=== PATIENT | female | born 1960 | race Caucasian/White ===

== ENCOUNTER 2019-01-25 00:52 | Inpatient (IN) | payer SELFPAY ==
[~2019-01-25] VITALS: Ht 152.4 cm; Wt 98.2 kg
[2019-01-25 00:53] VITALS: Ht 152.4 cm; Wt 98.2 kg
--- NOTE | 2019-01-25 01:10 | NUR ---
PT PRESENTS TO ED FOR EVAL OF SOB AND PALPITATIONS SINCE 2200 LAST NIGHT; STS SYMPTOMS BEGAN WHILE LAYING DOWN; PT STS UNABLE TO LAY SUPINE. PT ALSO C/O CHEST PRESSURE X1 WEEK. PT AAOX4, GCS 15, RESP EVEN, PT TACHYPNEIC AT 30 RPM, RALES AUSCULTATED BILATERALLY. ABDOMEN SOFT/NONTENDER/NONDISTENDED, DENIES N/V. MOVES ALL EXTREMITIES, TRANSFERS SELF FROM WHEELCHAIR TO ER GURNEY. PT'S SON AT BEDSIDE.
--- NOTE | 2019-01-25 01:21 | NUR ---
MEDICATED PT WITH 10MG DILTIZAEM. SVT NOTED ON CM.
--- NOTE | 2019-01-25 01:21 | NUR ---
MEDICATED 10MG CARDIZEM. AFIB WITH RVR NOTED ON CM.
--- NOTE | 2019-01-25 01:27 | NUR ---
XRAY AT BEDSIDE.
[2019-01-25] MEDS ORDERED: ATENOLOL100 MG PO (01:37)
[2019-01-25 01:42] LABS: CALCIUM 8.5 mg/dL (8.5-10.1); CARBON DIOXIDE 24.2 mmol/L (21-32); CHLORIDE SERUM 102 mmol/L (98-107); CREATININE SERUM 0.9 mg/dL (0.6-1.0); GFR1 > 60 mL/min; GLUCOSE SERUM 147 mg/dL (74-106); POTASSIUM SERUM 3.5 mmol/L (3.5-5.1); SODIUM SERUM 138 mmol/L (136-145)
--- NOTE | 2019-01-25 01:44 | NUR ---
MEDICATED WITH 10MG CARDIZEM. AFIB WITH RVR NOTED ON CM.
--- NOTE | 2019-01-25 01:44 | NUR ---
MEDICATED PT WITH 10MG DILTIAZEM. SVT NOTED ON CM. PLEASE SEE EMAR.
[2019-01-25 01:46] LABS: BASOPHIL % 1.2 % (0-2); PLATELET COUNT 248 x10^3mcL (130-400); RED CELL DISTRIBUTION WIDTH 14.4 % (11.5-14.5)
[2019-01-25 01:47] LABS: ALBUMIN 3.8 g/dL (3.4-5.0); ALKALINE PHOSPHATASE 100 U/L (46-116); ALT/SGPT 60 U/L (14-59); AST/SGOT 37 U/L (15-37); BILIRUBIN TOTAL 0.41 mg/dL (0.20-1.00); MAGNESIUM 2.3 mg/dL (1.8-2.4)
[2019-01-25 01:57] LABS: FREE T4 1.2 ng/dL (0.76-1.46); FREE THYROXINE INDEX 2.5 ug/dL (1.4-4.5); T4(THYROXINE) 7.7 ug/dL (4.7-13.3)
[2019-01-25 02:27] LABS: T3 TOTAL 1.22 ng/mL
--- NOTE | 2019-01-25 02:40 | NUR ---
MEDICATED PER ORDER; SEE EMAR. PT DENIES PAIN AT THIS TIME, STS IS COMFORTABLE AND IS NOW ABLE TO LAY ON THE BED WITH HOB AT 45 DEGREES.
--- NOTE | 2019-01-25 04:07 | NUR ---
ADMITTING DR AT BEDSIDE
--- NOTE | 2019-01-25 05:33 | NUR ---
RT AT BEDSIDE TO DRAW ABG
[2019-01-25 05:39] VITALS: BP 104/76
--- NOTE | 2019-01-25 07:28 | NUR ---
REPORT GIVEN TO ARY DURAN TO ASSUME CARE OF PT. RESTING ON ED GURNEY, RESPS E/U, NAD NOTED, DENIES CP, SOB AT THIS TIME.
--- NOTE | 2019-01-25 08:00 | NUR ---
SEEN PATIENT NOT INDISTRESS, NO PAIN, BP 126/90, AOX4 , TELE 1 AFIB WITH RVR, 120-160S. CTA ON BLF, NO PALPITATIONS AT THIS TIME, NORMOACTIVE BS, LAST BM 01/23/19, NO EDEMA, SKIN DRY AND INTACT, AMBULATORY. 20G RAC , SL. CALL LIGHT WITHIN REACH. BED AT LOWEST POSITION.
[2019-01-25 08:02] VITALS: BP 126/98
--- NOTE | 2019-01-25 08:37 | NUR ---
SEEN PATIENT AOX4, BP 124/98, HR 150-160S, NO C/O CHEST PAIN, SOB. TELE [address] ESCALANTE MADE AWARE.
--- NOTE | 2019-01-25 08:45 | NUR ---
DR CALLES SEEN PATIENT. HR AT 160S . LOPRESSOR PO GIVEN. NO C/O CHEST PAIN OR SOB. CALL LIGHT WITHIN REACH.
--- NOTE | 2019-01-25 08:53 | NUR ---
DR. CALLES T.O IV LOPRESSOR IF HR >140. WILL CONTINUE TO MONITOR PATIENT.
--- NOTE | 2019-01-25 09:59 | NUR ---
PATIENT HAS AFIB RVR TELE 1. HR 120-130. NO C/O SOB AND CHEST PAIN. AMBULATORY, 3 EPISODES OF URINATION TO BRP. NO DYSURIA. REPORT GIVEN TO CHEESEMAKER HELPER, JOANN.
--- NOTE | 2019-01-25 10:00 | NUR ---
PATIENT REFUSED FLU VACCINE TODAY. PATIENT WILL WAIT FOR DOCTOR'S CONSULT FOR FLU VACCINE.
--- NOTE | 2019-01-25 12:30 | NUR ---
PT RECEIVED TO ICU AT THIS TIME FROM [facility] VIA BED. PT IS AWAKE, ALERT, AND ABLE TO COMMUNICATE NEEDS AND FOLLOW COMMANDS. PT DENIES PRESENT PAIN, DENIES CHEST PAIN, DENIES SHORTNESS OF BREATH. PT HEIGHT IS 5'4", WEIGHT PER BEDSCALE IS 97.2 KG. BP 145/100 (113), HR 140'S, RR 20, SPO2 96% ON ROOM AIR, TEMP 97.6. AFIB NOTED ON MONITOR. PT HAS 20G RIGHT AC PIV, SALINE LOCKED AT THIS TIME. PT ABLE TO AMBULATE TO BEDSIDE COMMODE WITH MINIMAL ASSISTANCE. WILL CARRY OUT ORDERS AND CONTINUE TO MONITOR.
--- NOTE | 2019-01-25 12:43 | NUR ---
PATIENT SEEN WITH BP 103/79, HR 110, 96% O2 SAT. NOT IN DISTRESS , NO SOB , NO PALPITATIONS. TELE 1 REMOVED AND GIVEN TO AGRICULTURAL RESEARCH TECHNOLOGIST BARBARA. PATIENT TRANSFERED TO ICU BED 3 WITH RENEE MCALLISTER AND JOHNNY VIA [facility]. CHART GIVEN TO LEGAL PROCESS SPECIALIST.
--- NOTE | 2019-01-25 13:50 | NUR ---
FUEL OPERATOR AT BEDSIDE DRAWING FOR TROPONIN.
--- NOTE | 2019-01-25 14:12 | NUR ---
FAMILY OF PT AT BEDSIDE.
--- NOTE | 2019-01-25 15:05 | NUR ---
Discount pharmacy card and list to low cost medical clinics given to patient by Russel.
[2019-01-25 15:16] VITALS: BP 116/85
--- NOTE | 2019-01-25 18:45 | NUR ---
DR. VALENTIN AT BEDSIDE. UPDATES PROVIDED, QUESTIONS ANSWERED. PER DR. VALENTIN'S REQUEST, THE AMIODARONE GTT WAS STOPPED AT THIS TIME. DR. VALENTIN TO CHANGE MEDICATION ORDERS AT THIS TIME, WILL ENDORSE TO ONCOMING RN.
--- NOTE | 2019-01-25 19:10 | NUR ---
REPORT GIVEN TO ILA DURAN. ALL CARE CARE ENDORSED.
--- NOTE | 2019-01-25 19:10 | NUR ---
RECEIVED REPORT FROM JOANN DURAN. ASSUMING ALL CARE
[2019-01-25 19:30] VITALS: BP 129/95
--- NOTE | 2019-01-25 19:30 | NUR ---
RECEIVED PT LAYING IN BED. PT IS A/OX4. SPEECH IS CLEAR. ABLE TO MAKE NEEDS KNOWN/FOLLOW SIMPLE COMMANDS. BREATHING IS E/U ON RA. LUNGS SOUND CLEAR BILAT. SYMMETRICAL CHEST EXPANSION NOTED. S1/S2 HEART SOUNDS AUSCULTATED. CHEST WALL EQUAL AND SYMMETRICAL. PT IN AFIB RVR. HR 124, NIBP 129/95 MAP 102. DENIES ANY CP/PALPITATIONS. PALPABLE PULSES X4 EXTREMITIES. SKIN IS WARM AND DRY. TRACE EDEMA NOTED TO BLE. RAC IV INTACT/SECURED, SALINE LOCKED. PT IS AMBULATORY. ON CARDIAC DIET. ABD IS SOFT, ROUND, NONTENDER TO PALPATION. BOWEL SOUNDS ACTIVE X4 QUADRANTS. NO BM NOTED. SKIN IS INTACT. PT ABLE TO REPOSITION SELF INDEPENDENTLY. PT IS CALM. FAMILY AT BEDSIDE. BED IN LOW POSITION. CALL LIGHT IN REACH. WILL CONT TO MONITOR
--- NOTE | 2019-01-25 22:30 | NUR ---
PT'S O2 SATURATION 87%. PT PLACED ON 2 LPM VIA NC. WILL CONT TO MONITOR
[2019-01-25 23:04] VITALS: BP 137/91
--- NOTE | 2019-01-26 01:40 | NUR ---
PT ASSISTED TO BSC. PT VOIDED 400 ML OF YELLOW COLORED URINE.
[2019-01-26 03:03] VITALS: BP 136/90
--- NOTE | 2019-01-26 04:40 | NUR ---
ELECTRONICS RECYCLER AT BEDSIDE FOR AM LAB DRAW
[2019-01-26 05:14] LABS: microscopic required? NO
[2019-01-26 05:19] LABS: BASOPHIL % 0.3 % (0-2); PLATELET COUNT 222 x10^3mcL (130-400)
[2019-01-26 05:20] LABS: urine erythrocyte NEGATIVE (NEGATIVE)
[2019-01-26 05:24] LABS: RED CELL DISTRIBUTION WIDTH 14.6 % (11.5-14.5)
[2019-01-26 05:26] LABS: CALCIUM 8.2 mg/dL (8.5-10.1); CARBON DIOXIDE 32.2 mmol/L (21-32); CHLORIDE SERUM 105 mmol/L (98-107); CREATININE SERUM 0.7 mg/dL (0.6-1.0); GFR1 > 60 mL/min; GLUCOSE SERUM 97 mg/dL (74-106); MAGNESIUM 2.3 mg/dL (1.8-2.4); PHOSPHOROUS 3.6 mg/dL (2.5-4.9); SODIUM SERUM 141 mmol/L (136-145)
[2019-01-26 05:30] LABS: AMPHETAMINE QUAL UR NONE DETECTED (See below)
--- NOTE | 2019-01-26 07:03 | NUR ---
REPORT GIVEN TO AMANDA DURAN FOR CONTINUITY OF CARE. ALL QUESTIONS/CONCERNS ADDRESSED. ENDORSING ALL CARE
[2019-01-26 07:25] VITALS: BP 145/88
--- NOTE | 2019-01-26 07:25 | NUR ---
PATIENT AWAKE AND ORIENTED TO PERSON, PLACE AND TIME. PATIENT'S SPEECH IS CLEAR. PATIENT DENIES NAUSEA/VOMITING, SHORTNESS OF BREATH OR PAIN AT THIS TIME. TELE # 3 READS AFIB. IV SITE TO [facility]. PATIENT JUST GOT BACK TO BED FROM BEDSIDE COMMODE WITH STEADY GAIT AND NO ASSISTANCE. CALL LIGHT WITHIN REACH. SIDE RAILS UP X3. BED IS AT LOWEST POSITION.
--- NOTE | 2019-01-26 09:29 | NUR ---
PATIENT IS TAKEN TO RAD DEPT BY RENEE ROE FOR CT ANGIO PUL[facility] VIA [facility].
--- NOTE | 2019-01-26 10:03 | NUR ---
PATIENT CAME BACK TO THE ROOM.
--- NOTE | 2019-01-26 10:30 | NUR ---
RICHARDSON CATH INSERTION WAS IMPLEMENTED VIA ASEPTIC TECHNIQUE ORDERED. CLEAR YELLOW URINE OUTPUT NOTED IN THE BAG. PATIENT TOLERATED WITH PROCEDURE WELL.
[2019-01-26 11:30] VITALS: BP 133/76
--- NOTE | 2019-01-26 12:36 | NUR ---
DR. CALLES IS AT BEDSIDE EXAMING THE PATIENT.
--- NOTE | 2019-01-26 16:09 | NUR ---
REPORT GIVEN TO RENEE DAVALSO ON MST UNIT. PATIENT WILL BE TRANSFERRED TO ROOM 254B.
--- NOTE | 2019-01-26 16:34 | NUR ---
PATIENT TRANSFERRED TO ROOM 254B VIA WHEELCHAIR IN STABLE CONDITION. ALL BELONGINGS SENT TO THE ROOM WITH THE PATIENT. THE PATIENT'S SON ACCOMPANIED THE PATIENT TO THE ROOM.
--- NOTE | 2019-01-26 16:59 | NUR ---
RECIEVED PATIENT FROM ICU NURSE GIA. PATIENT CURRENTLY ON CORRECTIONAL OFFICER NUMBER 6. A FIB RHYTHM. IRREGULAR HEART BEAT UPON AUSCULTATION. PATIENT A+0 X4, BUT TURKISH SPEAKING. LUNG SOUNDS CLEAR TO AUSCULTATION. PATIENT CURRENTLY ON 2 LITER NC. EVEN AND UNLABORED BREATHING. RICHARDSON IN PLACE DRAINING YELLOW URINE TO GRAVITY. 2 SONS CURRENTLY AT BEDSIDE. NO REPORT OF PAIN AT THIS TIME. WILL CONTINUE TO MONITOR.
--- NOTE | 2019-01-26 19:31 | NUR ---
PATIENT CURRENTLY OBSERVED RESTING IN BED. FAMILY AT BEDSIDE. IV SALINE LOCKED. BED IN LOW POSITION. NO REPORT OF CHEST PAIN AT THIS TIME. CARE ENDORSED TO NOC NURSE.
--- NOTE | 2019-01-26 20:00 | NUR ---
PT CURRENTLY RESTING IN BED, NO ACUTE DISTRESS. A/O X4. TELE #6 SHOWING AFIB, DENIES CHEST PAIN. PULSES PALPABLE IN ALL EXTREMITIES, NO EDEMA NOTED. LUNG SOUNDS CTA BILATERALLY, DENIES SOB. BOWEL SOUNDS ACTIVE, LAST BM 01/26/19. RICHARDSON CATHETER IN PLACE, YELLOW URINE NOTED. AMBULATORY. SKIN INTACT. IV PATENT AND INTACT. BED IN LOWEST POSITION, SIDE RAILS UP X2, CALL LIGHT WITHIN REACH. WILL CONTINUE TO MONITOR.
[2019-01-26 20:27] VITALS: BP 116/53
--- NOTE | 2019-01-27 00:57 | NUR ---
INFORMED BY SPECIAL TESTER, HR DROPPED BELOW 40. PT CURRENTLY RESTING IN BED, NO ACUTE DISTRESS. VITAL SIGNS STABLE, CURRENT HR 58. WILL CONTINUE TO MONITOR.
[2019-01-27 05:15] VITALS: BP 115/71
--- NOTE | 2019-01-27 06:16 | NUR ---
PT SLEPT PERIODICALLY THROUGHOUT NIGHT, NO ACUTE DISTRESS. ALL NEEDS MET AND ATTENDED TO. NO SIGNIFICANT CHANGES. IV PATENT AND INTACT. BED IN LOWEST POSITION, SIDE RAILS UP X2, CALL LIGHT WITHIN REACH. WILL ENDORSE CARE TO ONCOMING NURSE.
[2019-01-27 06:25] LABS: BASOPHIL % 0.3 % (0-2); PLATELET COUNT 232 x10^3mcL (130-400); RED CELL DISTRIBUTION WIDTH 14.2 % (11.5-14.5)
[2019-01-27 06:27] LABS: CALCIUM 8.3 mg/dL (8.5-10.1); CARBON DIOXIDE 27.1 mmol/L (21-32); CHLORIDE SERUM 103 mmol/L (98-107); CREATININE SERUM 0.7 mg/dL (0.6-1.0); GFR1 > 60 mL/min; GLUCOSE SERUM 90 mg/dL (74-106); POTASSIUM SERUM 3.4 mmol/L (3.5-5.1); SODIUM SERUM 140 mmol/L (136-145)
--- NOTE | 2019-01-27 07:29 | NUR ---
RECIEVED REPORT FROM [facility] NURSE. PATIENT CURRENTLY ON 2 LITER NC. PATIENT IS AWAKE ALERT AND ORIENTED. AT BEDSIDE. NO REPORT OF CHEST PAIN OR SHORTNESS OF BREATH. RICHARDSON IN PLACE DRAINING YELLOW URINE TO GRAVITY. IV TO RIGHT FOREARM IS INTACT AND SALINE LOCKED. BED IN THE LOW POSITION. CALL LIGHT WITHIN REACH. WILL CONTINUE TO MONITOR.
[2019-01-27 08:52] VITALS: BP 108/56
[2019-01-27 12:13] VITALS: BP 101/57
[2019-01-27] MEDS ORDERED: DIGOXIN0.25 M1 PO (12:17)
[2019-01-27] MEDS ORDERED: LASIX40 MG PO (12:17)
[2019-01-27] MEDS ORDERED: LOP100 PO (12:18)
[2019-01-27] MEDS ORDERED: DILTIAZEM HCL120 M1 PO (12:19)
[2019-01-27 12:21] VITALS: BP 102/57
[2019-01-27 13:14] VITALS: BP 102/57
--- NOTE | 2019-01-27 13:18 | NUR ---
RICHARDSON DISCONTINUED IN PREPARATION FOR DISCHARGE. PATIENT TOLERATED WELL.
[2019-01-27 13:35] VITALS: BP 102/57
--- NOTE | 2019-01-27 14:09 | NUR ---
IV CATHETER REMOVED INTACT IN PREPARATION FOR DISHCARGE. DISCHARGE EDUCATION PROVIDED TO PATIENT AND SON. PRESCRIPTIONS EXPLAINED AND GIVEN TO PATIENT IN DISCHARGE PACKET. TELEMETRY BOX REMOVED AND RETURNED TO TELEMETRY. PATIENT AND SON VERBALIZE UNDERSTANDING OF DISCHARGE INSTRUCTIONS. PATIENT IN WHEELCHAIR AND SON ESCORTED TO LOBBY BY [facility] TECHNICIAN.
== END 2019-01-27 14:32 | disposition home or self-care (01) | DRG 308 ==
LOC: ED 00:52 → DU 03:17 → IC 03:17 → DU 07:30 → IC 12:35 → DU 12:40 → IC 12:49 → DU 01-26 16:36
PROVIDERS: Emergency Medicine; Internal Medicine; ADMIT General Practice
DX: I48.91 Unspecified atrial fibrillation (principal); I50.41 Acute combined systolic (congestive) and diastolic (congestive) heart failure; I16.1 Hypertensive emergency; I11.0 Hypertensive heart disease with heart failure; R74.0 Nonspecific elevation of levels of transaminase and lactic acid dehydrogenase [LDH]; E66.9 Obesity, unspecified; I42.9 Cardiomyopathy, unspecified; E02 Subclinical iodine-deficiency hypothyroidism; Z68.37 Body mass index [BMI] 37.0-37.9, adult; Z79.899 Other long term (current) drug therapy
CPT/HCPCS: 36600; 83880; 84439; 85378; 90658; 94150; G0378; J0282; J1160; J1940; J3490; J7620; Q0092; Q9967

== ENCOUNTER 2019-10-05 06:01 | Inpatient (IN) | payer OTHER, SELFPAY ==
[~2019-10-05] VITALS: Ht 165.1 cm; Wt 101.2 kg
[~2019-10-05 06:01] MED LIST: ATENOLOL100 MG PO; DIGOXIN0.25 M1 PO; DILTIAZEM HCL120 M1 PO; LASIX40 MG PO; LOP100 PO
[2019-10-05 06:03] VITALS: Ht 165.1 cm; Wt 101.2 kg
--- NOTE | 2019-10-05 06:16 | NUR ---
PATIENT BROUGHT IN TO ED T2B FROM [facility] FOR C/O SHORTNESS OF BREATH. PATIENT WAS HAVING DIFFICULTY BREATHING SINCE LAST NIGHT. PATIENT IS UKRAINIAN SPEAKING. PATIENT TOOK MEDICATIONS LAST NIGHT, BUT DOES NOT RECALL THE MEDICATION NAMES. PATIENT FEELS LIKE SHE HAS BEEN HAVING HEART PALPITATIONS. LAST NIGHT SHE TOOK A NEW MEDICATION THAT HER DOCTOR PRESCRIBED FOR HER, BUT SHE CANNOT RECALL THE NAME AND DOSAGE OF THE MEDICATION. PATIENT EXPLAINED THAT IS ON THE WAY WITH THE PATIENT'S MEDICATIONS. WILL CONTINUE TO MONITOR. CALL LIGHT WITHIN REACH.
--- NOTE | 2019-10-05 06:37 | NUR ---
PATIENT HR: 154-[address] BRO FORRESTER.
[2019-10-05] MEDS ORDERED: ACID REDUCER20 MG PO (07:07)
--- NOTE | 2019-10-05 07:07 | NUR ---
ASSUMED CARE OF PT AT THIS TIME, REPORT RECEIVED FROM RENEE PADGETT. PT ON FULL CM. PT REPORTS SUDDEN ONSET OF MID UPPER BACK PAIN AND SOB SINCE LABEL OPERATOR. DENIES ILL CONTACTS. PT REPORTS HX OF "CARDIAC ARRYTHMIA", STS SHE CANNOT RECALLL NAME OF ARRYTHMIA. PT O2% ON 4L VIA NC, 90%. PT ON FULL CM, A FIB ON FULL CM NOTED, HR 78-90. MSE COMPLETED BY DR CRABTREE.
[2019-10-05] MEDS ORDERED: ALD25 PO (07:08)
[2019-10-05 07:10] LABS: BASOPHIL % 0.4 % (0-2); PLATELET COUNT 218 x10^3mcL (130-400); RED CELL DISTRIBUTION WIDTH 13.9 % (11.5-14.5)
[2019-10-05] MEDS ORDERED: ELIQUIS5 MG PO (07:10)
--- NOTE | 2019-10-05 07:13 | NUR ---
GAVE REPORT TO RENEE WILSON FOR CONTINUITY OF CARE. PATIENT IN STABLE CONDITION. NO SIGNS OF IMMINENT DISTRESS AT THE MOMENT. PATIENT MADE AWARE OF DAY SHIFT NURSE ASSUMING CARE.
[2019-10-05 07:29] LABS: CALCIUM 8.7 mg/dL (8.5-10.1); CARBON DIOXIDE 22.4 mmol/L (21-32); CHLORIDE SERUM 106 mmol/L (98-107); CREATININE SERUM 0.9 mg/dL (0.6-1.0); GFR1 > 60 mL/min; GLUCOSE SERUM 152 mg/dL (74-106); POTASSIUM SERUM 3.9 mmol/L (3.5-5.1); SODIUM SERUM 141 mmol/L (136-145)
[2019-10-05 07:34] LABS: ALBUMIN 3.5 g/dL (3.4-5.0); ALKALINE PHOSPHATASE 90 U/L (46-116); ALT/SGPT 34 U/L (14-59); AST/SGOT 25 U/L (15-37); BILIRUBIN TOTAL 0.6 mg/dL (0.20-1.00); TOTAL PROTEIN, SERUM 7.1 g/dL (6.4-8.2)
--- NOTE | 2019-10-05 08:01 | NUR ---
PT ASSISTED ONTO BEDSIDE COMMODE, CLEAR YELLOW URINE VOIDED. PT TOLERATED WELL.
--- NOTE | 2019-10-05 08:05 | NUR ---
URINE DIP RESULTS REPORTED TO DR CRABTREE.
--- NOTE | 2019-10-05 08:54 | NUR ---
PT ON BEDSIDE COMMODE VOIDING, STS "I FEEL A LOT BETTER", WILL CONTINUE TO MONITOR.
--- NOTE | 2019-10-05 09:20 | NUR ---
REPORT GIVEN TO RENEE CARCAMO TO ASSUME CARE OF PT ON TELE FLOOR.
--- NOTE | 2019-10-05 09:45 | NUR ---
RECEIVED PT FROM ER. PT AAOX4. C/O SOME PRESSURE IN THE CHEST AREA. BP 136/89. AFIB IN THE MONITOR AND IRREGULAR TO AUSCULTATION. DENIES CHEST PAIN AND SOB. 98% SAO2 ON 2L O2 BY NASAL CANNULA. C/O FATIGUE, WITH POOR ACTIVITY TOLERANCE, BUT AMBULATORY. ALL VS STABLE. TEMP 96.3, HR 97 BPM, RR 20 BREATHS/MIN. SAFETY PRECAUTIONS IN PLACE. WILL CONTINUE TO MONITOR.
[2019-10-05 13:13] VITALS: BP 134/109
[2019-10-05 16:01] VITALS: BP 136/89
[2019-10-05 16:50] VITALS: BP 149/94
--- NOTE | 2019-10-05 17:20 | NUR ---
DR. MARQUEZ GAVE VERBAL ORDERS FOR DIGOXIN 0.25 MG IV PUSH. APICAL PULSE WAS 135 BPM AND BP WAS 149/94, MAP 99 JUST PRIOR TO ADMINISTRATION. DIGOXIN LEVEL WAS BELOW THERAPEUTIC LEVEL AT <20 NG/ML. DR. MARQUEZ ALSO GAVE VERBAL ORDERS FOR CARDIZEM 10 MG IV PUSH. DIGOXIN WAS GIVEN OVER 5 MIN AND CARDIZEM WAS GIVEN OVER 4 MIN. HR DECREASED TO A CURRENT 85 BPM.
[2019-10-05 17:58] VITALS: BP 149/94
[2019-10-05 18:28] VITALS: BP 133/84
--- NOTE | 2019-10-05 18:55 | NUR ---
PT TRANSFERRED TO CARE OF EMS/SENIOR NATIONAL ACCOUNT MANAGER. LAST VS WERE TEMP 98.3, BP 136/86, RR 20 BREATHS/MIN, HR 83 BPM, 96% SAO2 ON 2L NC. SHE WAS SUPPLIED O2 DURING TRANSFER. IV WAS DC WITH CATHETER INTACT. SHE WAS STABLE, AAOX4, AND DENIED PAIN.
== END 2019-10-05 18:45 | disposition short-term general hospital (02) | DRG 309 ==
LOC: ED 06:01 → DU 09:13
PROVIDERS: Emergency Medicine; ADMIT Internal Medicine Pulmonary Disease; ATTEND Internal Medicine Pulmonary Disease
DX: I48.91 Unspecified atrial fibrillation (principal); I50.22 Chronic systolic (congestive) heart failure; R00.2 Palpitations; E66.9 Obesity, unspecified; I11.0 Hypertensive heart disease with heart failure; I42.0 Dilated cardiomyopathy; I25.10 Atherosclerotic heart disease of native coronary artery without angina pectoris; I25.2 Old myocardial infarction; Z79.01 Long term (current) use of anticoagulants
CPT/HCPCS: 83880; G0378; J1160; J1940; J3490; Q0092